=== PATIENT | female | born 1945 | race Native Hawaiian/Other Pacific Islander ===

== ENCOUNTER 2017-05-11 12:07 | Outpatient (CLI) | payer OTHER ==
[2017-05-11 12:35] LABS: POTASSIUM 4.4 mmol/L (3.6-5.2); SODIUM 136 mmol/L (136-145)
== END 2017-05-11 22:00 | disposition home or self-care (01) ==
LOC: LABW 12:07
PROVIDERS: Nurse Practitioner Adult Health
DX: Z79.899 Other long term (current) drug therapy (principal); Z51.81 Encounter for therapeutic drug level monitoring; R35.8 Other polyuria
CPT/HCPCS: 36415; 80048

== ENCOUNTER 2018-09-29 11:57 | Outpatient (CLI) | payer OTHER ==
[2018-09-29 12:31] LABS: POTASSIUM 4.4 mmol/L (3.6-5.2)
== END 2018-09-29 23:34 | disposition home or self-care (01) ==
LOC: LABW 11:57
PROVIDERS: Nurse Practitioner Adult Health
DX: E78.2 Mixed hyperlipidemia (principal); Z79.899 Other long term (current) drug therapy
CPT/HCPCS: 36415; 80048; 80061